=== PATIENT | female | born 1970 | race Caucasian/White ===

== ENCOUNTER 2018-01-08 02:26 | Emergency (ER) | payer SELFPAY ==
[2018-01-08 02:38] VITALS: RESP 18; TEMP 98
--- NOTE | 2018-01-08 04:04 | C.PDOC ---
History Of Present Illness 47 year old female presents to the ED c/o pain to the right shoulder and upper back for the past 3 days. Patient states her pain started after doing some weight lifting 5 days ago. Patient reports pain has been getting progressively worse and is no longer relieved with OTC pain medications and heat pads. Patient denies fall, weakness, numbness. Time Seen by Provider: 01/08/18 02:55 Chief Complaint (Nursing): Upper Extremity Problem/Injury History Per: Patient History/Exam Limitations: no limitations Onset/Duration Of Symptoms: Days (3) Current Symptoms Are (Timing): Still Present Quality: "Pain" Exacerbating Factor(s): Movement Recent travel outside of the [place]: No Additional History Per: Patient Past Medical History Reviewed: Historical Data, Nursing Documentation, Vital Signs Vital Signs: Last Vital Signs Temp 98 F 01/08/18 02:47 Pulse 89 01/08/18 02:47 Resp 18 01/08/18 02:47 BP 155/110 H 01/08/18 02:47 Pulse Ox 99 01/08/18 04:28 - Medical History PMH: No Chronic Diseases Surgical History: No Surg Hx Family History: States: Unknown Family Hx - Social History Hx Alcohol Use: No Hx Substance Use: No - Immunization History Hx Tetanus Toxoid Vaccination: No Hx Influenza Vaccination: No Hx Pneumococcal Vaccination: No Review Of Systems Cardiovascular: Negative for: Chest Pain Respiratory: Negative for: Shortness of Breath Gastrointestinal: Negative for: Nausea, Vomiting Musculoskeletal: Positive for: Shoulder Pain, Arm Pain, Back Pain Skin: Negative for: Rash Neurological: Negative for: Weakness, Numbness, Headache Physical Exam - Physical Exam Appears: Non-toxic, No Acute Distress Skin: Normal Color, Warm, Dry Head: Atraumatic, Normacephalic Eye(s): bilateral: Normal Inspection Neck: Normal ROM, No Midline Cervical Tenderness, Supple Chest: Symmetrical Cardiovascular: Rhythm Regular Respiratory: Normal Breath Sounds, No Rales, No Rhonchi, No Wheezing Back: No Vertebral Tenderness, Muscle Spasm (right upper back) Extremity: Normal ROM, Tenderness (posterior aspect right shoulder, subscapular area ), Capillary Refill (< 2 seconds), No Swelling Pulses: Left Radial: Normal, Right Radial: Normal Neurological/Psych: Oriented x3, Normal Speech, Normal Motor, Normal Sensation Gait: Steady ED Course And Treatment O2 Sat by Pulse Oximetry: 99 (ON RA) Pulse Ox Interpretation: Normal - Other Rad Rt shoulder XR X-Ray: Interpreted by Me, Viewed By Me Interpretation: No fx or dislocation Progress Note: Plan: - Valium 5 mg PO. - Toradol 30 mg IM. - right shoulder X -ray. On reassessment, patient is resting comfortably, and is in no acute distress. Patient was instructed to follow up with physician/clinic in 1-2 days for further evaluation. Reevaluation Time: 04:23 Reassessment Condition: Improved Disposition Counseled Patient/Family Regarding: Diagnosis - Disposition Referrals: [facility] [Outside] Disposition: HOME/ ROUTINE Disposition Time: 04:24 Condition: STABLE Additional Instructions: Continue medications Take medications as directed Return to ER if worse Prescriptions: diaZEpam [Valium] 5 mg PO BID #7 tab Naproxen [Naprosyn] 1 tab PO BID PRN #20 tab PRN Reason: Pain Instructions: Muscle Strain (DC) Forms: [employer] (Mongolian) - Clinical Impression Clinical Impression: Muscle strain - PA / LEAD ASSISTANT MANAGER / Resident Statement MD/DO has reviewed & agrees with the documentation as recorded. - Scribe Statement The provider has reviewed the documentation as recorded by the Scribe Yonas Casey All medical record entries made by the Scribe were at my direction and personally dictated by me. I have reviewed the chart and agree that the record accurately reflects my personal performance of the history, physical exam, medical decision making, and the department course for this patient. I have also personally directed, reviewed, and agree with the discharge instructions and disposition.
[2018-01-08 05:45] VITALS: BP 124/72; PULSE 72; O2SAT 19
--- NOTE | 2018-01-08 07:49 | RAD ---
Right shoulder three views History: Pain. Comparison: None available. Findings: Mild narrowing of the right glenohumeral joint space. Mild narrowing of the right acromioclavicular joint space. No evidence of acute displaced fracture or dislocation. Impression: Mild degenerative changes. If pain persists, consider MRI.
== END 2018-01-08 05:59 | disposition home or self-care (01) ==
LOC: C.ER 02:26
DX: S46.911A Strain of unspecified muscle, fascia and tendon at shoulder and upper arm level, right arm, initial encounter (principal); X50.0XXA Overexertion from strenuous movement or load, initial encounter
CPT/HCPCS: 73030; 96372; 99284; J1885